=== PATIENT | male | born 1975 | race Caucasian/White ===

== ENCOUNTER 2023-05-13 18:13 | Observation (INO) | payer BC, SELFPAY ==
[2023-05-13] VITALS (14 sets, daily range): BP systolic 128–145; BP diastolic 72–92; PULSE 76–84; RESP 16; TEMP 37.1; O2SAT 95–100
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
[2023-05-13 19:05] LABS: Abs Immature Grans 0.07 10^3/uL (0.0-0.06); Absolute Basophil Count 0.07 10^3/uL (0.0-0.2); Absolute Eosinophil Count 0.14 10^3/uL (0.0-0.7); Absolute Lymphocyte Count 1.79 10^3/uL (1.2-3.4); Absolute Monocyte Count 1.05 10^3/uL (0.1-0.8); Absolute Neutrophil Count 10.56 10^3/uL (1.2-6.7); Basophils % 0.5; HCT 46.8 % (40.0-50.0); HGB 15.9 g/dL (13.5-17.5); Immature Grans % 0.5; Lymphocytes % 13.1; MCH 30.5 pg (27.0-33.0); MCV 90 fL (80-95); MPV 9.2 fL (8.0-11.0); Monocytes % 7.7; Neutrophils % 77.2; Platelet Count 180 10^3/uL (130-400); RBC 5.21 10^6/uL (4.36-5.78); RDW 12.6 % (11.8-14.1); RDW-SD 41.7 fL; WBC 13.68 10^3/uL (4.4-10.8)
[2023-05-13] MEDS: Ketorolac 30 MG/ML VIAL IVP (19:06)
[2023-05-13] MEDS: Normal Saline 1,000 ML 1000 ML IV (19:06)
[2023-05-13] MEDS: ACETAMINOPHEN 1,000 MG/100 ML BTL 400 MG IVPB (19:06)
[2023-05-13 19:17] LABS: ALT 18 U/L (16-63); AST 30 U/L (15-37); Albumin 4.2 g/dL (3.4-5.0); Alkaline Phosphatase 84 U/L (46-116); Anion Gap 11.4 mmol/L (3-11); BUN 6 mg/dL (7-18); Bilirubin, Total 0.3 mg/dL (0.2-1.0); CO2 27.6 mmol/L (21.0-32.0); CREATININE 0.8 mg/dL (0.70-1.30); Calcium 8.9 mg/dL (8.5-10.1); Chloride 93 mmol/L (98-107); Estimated GFR 108.49 (mL/min/1.73m2); Glucose 102 mg/dL (74-106); Potassium 3.7 mmol/L (3.5-5.1); Sodium 132 mmol/L (136-145); Total Protein 7.8 g/dL (6.4-8.2)
[2023-05-13] MEDS: Omnipaque 350 MG/ML 100 ML BTL IJ (19:29)
[2023-05-13] MEDS: Normal Saline - Diluent 50 ML VIAL IJ (19:30)
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
[2023-05-13] MEDS: Enoxaparin 40 MG/0.4 ML SYR SC (23:38)
[2023-05-13] MEDS: Lidocaine 5% Patch 1 PATCH TP (23:38)
[2023-05-13] MEDS: Acetaminophen 500 MG TAB 1000 MG PO (23:39)
--- NOTE | 2023-05-14 | DI.RAD_ITS ---
Exam(s) XR CHEST 2V PA LATERAL EXAM: XR CHEST 2V PA LATERAL CLINICAL HISTORY: pneumothorax TECHNIQUE: 2D digital imaging was performed of the chest. Two images were obtained. PA and lateral views were obtained. COMPARISON: CT CT CHEST/ABD/PEL W from 05/13/2023 FINDINGS: MEDIASTINUM: Normal. HEART: Normal. PULMONARY VASCULATURE: Normal. LUNGS: There are bilateral basilar opacities, left greater than right. PLEURAL SPACE: The known right apical pneumothorax is not well visualized on this examination. BONE:Within normal limits for the patient's age. Multiple right rib fractures are again seen. There is a right AC joint separation. OTHER FINDINGS:Normal. IMPRESSION: 1. The patient's known tiny right apical pneumothorax is not well visualized on this examination. 2. Bilateral pulmonary infiltrates likely reflecting contusions. 3. Multiple right rib fractures. DATA REPOSITORY: RADIATION DOSE DELIVERED:
[2023-05-14] MEDS: Acetaminophen 500 MG TAB 1000 MG PO (06:21)
[2023-05-14 06:48] VITALS: BP 150/89; PULSE 68; TEMP 36.4; O2SAT 92
--- NOTE | 2023-05-14 07:08 | W.PM.PROGNOT ---
Date of Service Date of service: 05/14/23 Time of Service: 07:09 Assessment and Plan Assessment and plan (1) Ribs, multiple fractures: Status: Acute Assessment and plan: discharge home with instructions. Subjective Subjective Interval history since last seen: He feels better today. Pain is better controlled. He denies any dyspnea. Clearing pulmonary secretions without issue. Exam Resp Effort & Inspection: cough (acceptable) and decreased respiratory effort Auscultation: bronchial breath sounds Objective Last Vital Signs Temp 97.5 F L 05/14/23 06:48 Pulse 68 05/14/23 06:48 Resp 16 05/13/23 18:16 BP 150/89 H 05/14/23 06:48 Pulse Ox 92 05/14/23 06:48 Laboratory Results - last 24 hr 05/13/23 05/13/23 18:50 18:50 WBC 13.68 H RBC 5.21 Hgb 15.9 Hct 46.8 MCV 90 MCH 30.5 MCHC 34.0 RDW 12.6 Plt Count 180 MPV 9.2 Immature Gran % 0.5 Neutrophils % 77.2 Lymphocytes % 13.1 Monocytes % 7.7 Eosinophils % 1.0 Basophils % 0.5 Nucleated RBC % 0.0 Absolute Neutrophils 10.56 H Absolute Lymphocytes 1.79 Absolute Monocytes 1.05 H Absolute Eosinophils 0.14 Absolute Basophils 0.07 Sodium 132 L Potassium 3.7 Chloride 93 L Carbon Dioxide 27.6 Anion Gap 11.4 H BUN 6 L Creatinine 0.8 Est GFR (CKD-EPI 2020) 108.49 Glucose 102 Calcium 8.9 Total Bilirubin 0.3 AST 30 ALT 18 Alkaline Phosphatase 84 Total Protein 7.8 Albumin 4.2 PAWSS Have you Been Recently Intoxicated or Drunk Within the Last 30 days?: Yes Have you Ever Experienced Previous Episodes of Alcohol Withdrawal?: No Have you ever Experienced Withdrawal Seizures?: No Have you ever Experienced Delirium Tremens(DT)s?: No Have you ever undergone Alcohol Rehabilitation Treatment (i.e, inpt ot outpatient treatment programs)?: No Result: 1 Time Spent with Patient Time Spent with Patient: <25 minutes Time was spent: preparing to see the patient(eg.review tests) and indepentently interpreting results
--- NOTE | 2023-05-14 08:25 | DI.VRAD_ITS ---
PROCEDURE INFORMATION: Exam: XR Chest Exam date and time: 05/14/2023 8:02 AM Age: 47 years old Clinical indication: Condition or disease; Patient HX: Pneumothorax, rib fracture TECHNIQUE: Imaging protocol: Radiologic exam of the chest. Views: 2 views. COMPARISON: CT CHEST/ABD/PEL W 05/13/2023 7:30 PM FINDINGS: Lungs: Bibasilar opacities, left greater than right, may represent atelectasis or pneumonia. Pleural spaces: Questionable tiny right apical pneumothorax. Probable trace bilateral pleural effusions. Heart/Mediastinum: Unremarkable. No cardiomegaly. Bones/joints: Persistent multiple segmental right-sided rib fractures. Persistent deformity of the right AC joint. IMPRESSION: 1. Questionable tiny right apical pneumothorax. 2. Probable trace bilateral pleural effusions. 3. Bibasilar opacities, left greater than right, may represent atelectasis or pneumonia. Dictated and Authenticated by: Fransisco Ernandez MD. Ordering:FABI Aceves MD
--- NOTE | 2023-05-14 08:42 | W.PM.DS.N ---
Date of service: 05/14/23 Time of Service: 08:42 DS: Diagnosis Discharge Diagnosis (1) Ribs, multiple fractures: Status: Acute Discharge Plan Disposition Patient Disposition: Home Condition: Fair Discharge Details Reason For Visit: Rib Fracture Admit Date/Time: 05/13/23 21:08 Admit Provider: Ketan Lazo Attending Provider: Ketan Lazo Primary Care Provider: ,Local Home Meds and New Rx's Prescriptions: New tramadol 50 mg tablet 50 mg PO Q8H PRNQty: 15 0RF Rx Instructions: Take one tablet by mouth up to every 8 hours if needed for severe pain lidocain-me.ehvpqff-twjf-mveas 4-20-0.025-5 % adhesive patch,medicated 1 patch topical DAILY Qty: 10 0RF Rx Instructions: apply one patch to chest wall in area of most severe pain. Leave in place for 12 hours, then remove. Reapply 12 hours later if needed Discharge Instructions Instructions: Rib Fracture (DC) Additional Instructions: Prem, I am glad you are making a nice recovery from your rib fractures. Like we talked about, you sustained breaks to ribs number 1 through 5 on your right side. The main treatment of rib fractures is adequate pain control to allow you to take deep breaths and clear your lungs of mucous and secretions. You should use tylenol and ibuprofen around the clock for the first 72 hours. Alternate the medications so that there is overlap of the dosing. For instance, start with tylenol. Three hours later take an ibuprofen. Three hours after that, take another tylenol, etc. Do this no matter what for the first 3 days, then use the medications as needed. I added a medication called tramadol that you can tke if the over the counter medications are not working. Pain pathes, heating pads and ice packs will also be helpful. Use the breathing machine that we worked on in the hospital as well. Try to do it 10 times per hour while you are awake. Or during every commercial if watching TV. Or every time you get a text message if you use your phone alot. Your goal in the first day should be 2500 ml. If you hit that keep going higher every time. You should call your primary care doctor for a check up in [place] next week or two. If they cant see you, then call my office and arrange an appointment with us. You should wash your scalp laceration every day with warm soapy water. The maddison should be removed in 7-10 days. Activity:: Activity as Tolerated Equipment/Supplies:: incentive spirometer Diet:: As Tolerated Discharge Orders Discharge Orders: Discharge Order (Routine); Ordered 05/14/23 Ordered By: Ketan Lazo DS: Summary Time Spent with Patient providing and/or coordinating discharge services: Greater than 30 minutes Status at Discharge Functional status at discharge: independent ambulation Overall status at discharge: patient is progressing back to baseline Mental Status: mental status grossly normal Speech and Movement: speech and movement normal Mood: congruent mood Affect: normal affect Exam Resp Effort & Inspection: able to speak in complete sentences and cough (weakened cough but clears secretions) Psych Mental Status: mental status grossly normal Speech and Movement: speech and movement normal Mood: congruent mood Affect: normal affect DS: Data Vitals/I&O Vitals and I&O: Vital Signs Temperature 97.5 F L 05/14/23 06:48 Temperature Source Tympanic 05/14/23 06:48 Pulse 68 05/14/23 06:48 Pulse Rhythm Regular 05/13/23 23:14 Respiratory Rate 16 05/13/23 18:16 Respiratory Effort Normal 05/13/23 23:22 Respiratory Depth Normal 05/13/23 23:22 Respiratory Pattern Normal 05/13/23 23:22 Blood Pressure 150/89 H 05/14/23 06:48 Blood Pressure Mean 85 05/13/23 20:16 Blood Pressure Position Sitting 05/13/23 18:16 Pulse Oximetry 92 05/14/23 06:48 Oxygen Delivery Method Room Air 05/14/23 06:48 Oxygen Flow Rate 0 05/14/23 06:48 Pain Level 0 05/14/23 06:48 Intake & Output 05/13/23 05/13/23 05/14/23 11:59 23:59 11:59 Intake Total 1100 / 1100 Balance 1100 / 1100 Weight 220 lb Intake: IV 1100 / 1100 Other: Urine Appearance Clear Data Completed and Pending Labs on day of discharge: Labs from last 24 hours 05/13/23 05/13/23 18:50 18:50 WBC 13.68 H RBC 5.21 Hgb 15.9 Hct 46.8 MCV 90 MCH 30.5 MCHC 34.0 RDW 12.6 Plt Count 180 MPV 9.2 Immature Gran % 0.5 Neutrophils % 77.2 Lymphocytes % 13.1 Monocytes % 7.7 Eosinophils % 1.0 Basophils % 0.5 Nucleated RBC % 0.0 Absolute Neutrophils 10.56 H Absolute Lymphocytes 1.79 Absolute Monocytes 1.05 H Absolute Eosinophils 0.14 Absolute Basophils 0.07 Sodium 132 L Potassium 3.7 Chloride 93 L Carbon Dioxide 27.6 Anion Gap 11.4 H BUN 6 L Creatinine 0.8 Est GFR (CKD-EPI 2020) 108.49 Glucose 102 Calcium 8.9 Total Bilirubin 0.3 AST 30 ALT 18 Alkaline Phosphatase 84 Total Protein 7.8 Albumin 4.2 PFSH All Active Problems Ribs, multiple fractures (Acute) Social History Smoking/Tobacco Use Status: Current every day Tobacco Type: cigarettes Smoking risk assessment performed?: Yes Alcohol Intake: current Alcohol Intake frequency: 3 or more drinks per day Alcohol type: beer Substance use type: does not use Housing: house Do you feel safe at home: Yes Do you feel safe in your relationship?: Yes Time Spent with Patient Time Spent with Patient: <45 minutes Time was spent: preparing to see the patient(eg.review tests), indepentently interpreting results and counseling the patient
--- NOTE | 2023-05-14 09:32 | PDOC.CMIN ---
Date of service: 05/14/23 Time of Service: 09:33 [facility] All Active Problems Ribs, multiple fractures (Acute) Social History Smoking/Tobacco Use Status: Current every day Tobacco Type: cigarettes Smoking risk assessment performed?: Yes Alcohol Intake: current Alcohol Intake frequency: 3 or more drinks per day Alcohol type: beer Substance use type: does not use Housing: house Do you feel safe at home: Yes Do you feel safe in your relationship?: Yes
[2023-05-14] MEDS: Patch Removal 1 EACH TP (10:31)
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
== END 2023-05-14 10:37 | disposition home or self-care (01) ==
LOC: ER 21:56 → MS 22:24
PROVIDERS: Admitting Provider Surgery; Emergency Provider Nurse Practitioner Acute Care; Visit Provider Surgery
DX: S27.2XXA Traumatic hemopneumothorax, initial encounter (principal); S22.41XA Multiple fractures of ribs, right side, initial encounter for closed fracture; S43.101A Unspecified dislocation of right acromioclavicular joint, initial encounter; I71.43 Infrarenal abdominal aortic aneurysm, without rupture; V86.59XA Driver of other special all-terrain or other off-road motor vehicle injured in nontraffic accident, initial encounter; F17.210 Nicotine dependence, cigarettes, uncomplicated; S01.01XA Laceration without foreign body of scalp, initial encounter
CPT/HCPCS: 74177; 80053; 90471; 96365; 96375; 99285; J1650; 70450; 71046; 71260; 72125; 85025; G0378; J0131; J1885; J3490